=== PATIENT | male | born 1980 | race Caucasian/White ===

== ENCOUNTER 2019-02-22 14:30 | Emergency (ER) | payer OTHER, SELFPAY ==
[2019-02-22 14:31] VITALS: BP 160/90; PULSE 116; RESP 18; TEMP 37; O2SAT 96; BMI 36.4
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
--- NOTE | 2019-02-22 14:56 | ED.RN ---
PT WAS TESTED FOR CO LEVEL AND THE MONITOR USED BY [facility] REGISTERED AT ONE. DR. ELIANE GRAY.
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
[2019-02-22 15:18] VITALS: BP 144/82; PULSE 81; RESP 16; O2SAT 98
--- NOTE | 2019-02-22 15:19 | ED.RN ---
PT WAS GIVEN 1000ML 0.9%NS IV PER EMS.
== END 2019-02-22 15:19 | disposition home or self-care (01) ==
PROVIDERS: Emergency Provider Emergency Medicine; Family Provider Family Medicine; PCP Family Medicine
DX: T67.5XXA Heat exhaustion, unspecified, initial encounter (principal); X08.8XXA Exposure to other specified smoke, fire and flames, initial encounter; Y93.9 Activity, unspecified; Y92.89 Other specified places as the place of occurrence of the external cause; Y99.0 Civilian activity done for income or pay
CPT/HCPCS: 99284